=== PATIENT | female | born 1995 | race Asian ===

== ENCOUNTER 2017-07-04 22:41 | Emergency (ER) | payer BC ==
[~2017-07-04] VITALS: Ht 160 cm; Wt 56.0 kg
[2017-07-04 22:53] VITALS: Ht 160 cm; Wt 56.0 kg
[2017-07-04 23:59] VITALS: BP 132/79
== END 2017-07-05 00:28 | disposition home or self-care (01) ==
LOC: ED 22:41
DX: T78.40XA Allergy, unspecified, initial encounter (principal); X58.XXXA Exposure to other specified factors, initial encounter
CPT/HCPCS: J0171; J1200; J2930; J3490

== ENCOUNTER 2017-07-05 17:58 | Emergency (ER) | payer BC ==
[~2017-07-05] VITALS: Ht 160 cm; Wt 55.0 kg
[2017-07-05 18:05] VITALS: Ht 160 cm; Wt 55.0 kg
[2017-07-05 18:54] VITALS: BP 126/80
== END 2017-07-05 18:54 | disposition home or self-care (01) ==
LOC: ED 17:58
DX: L50.0 Allergic urticaria (principal)
CPT/HCPCS: J7510; Q0163